=== PATIENT | male | born 1945 | race Caucasian/White ===

== ENCOUNTER 2024-02-05 21:01 | Inpatient (IN) | payer OTHER, MEDICARE ==
[~2024-02-05] VITALS: Ht 175.3 cm; Wt 114.8 kg
[2024-02-05 21:35] VITALS: O2SAT 97
[2024-02-05] MEDS: CALCIUM GLUCONATE 1GM PREMIX 50 ML IV ONE (22:45)
[2024-02-05 23:29] LABS: HEMATOCRIT. 32.6 % (42.0-52.0); HEMOGLOBIN. 10.7 g/dL (14.0-18.0); MEAN CORPUSCULAR HEMOGLOBIN 35.7 pg (28.0-32.0); MEAN CORPUSCULAR HGB CONC 32.9 g/dL (31.0-37.0); MEAN CORPUSCULAR VOLUME 108.4 fL (80.0-94.0); RED BLOOD CELL COUNT 3.01 mill/uL (4.7-6.1); RED CELL DISTRIBUTION WIDTH 16.8 % (11.6-14.6); WHITE BLOOD COUNT 5.3 x1000/uL (4.5-11.0)
[2024-02-05 23:34] LABS: INR 1.3; PROTHROMBIN TIME 14.3 sec (9.6-11.0)
[2024-02-05 23:38] LABS: CHLORIDE 107 mEq/L (98-107); SODIUM 140 mEq/L (136-145)
[2024-02-05 23:39] LABS: CALCIUM 8.9 mg/dL (8.7-10.4); CARBON DIOXIDE 25 mEq/L (21-32)
[2024-02-05 23:44] LABS: CREATININE 2.1 mg/dL (0.6-1.3); GLUCOSE 106 mg/dL (70-105); UREA NITROGEN BLOOD 20 mg/dL (9-23)
[2024-02-05 23:45] LABS: ETHANOL BLOOD 227 mg/dL (<10)
[2024-02-05 23:46] LABS: ALANINE AMINOTRANSFERASE 25 IU/L (10-49); ALBUMIN 4.7 g/dL (3.2-4.8); ASPARTATE AMINOTRANSFERASE 37 IU/L (<34); BILIRUBIN TOTAL 1.4 mg/dL (0.1-1.0); DIFFERENTIAL COMMENT 1
[2024-02-05 23:47] LABS: MEAN PLATELET VOLUME 9.5 fl (7.4-10.4); PROTEIN TOTAL 6.8 g/dL (6.0-8.3)
[2024-02-05 23:50] LABS: PLATELET 869 x1000/uL (130-400)
[2024-02-06 00:07] LABS: ATYPICAL LYMPHOCYTES 1
[2024-02-06 00:08] LABS: GIANT PLATELETS 2+; OVALOCYTES 3+; PLATELET ESTIMATE MARKEDLY INCREASED; TARGET CELLS 1+
[2024-02-06 00:31] LABS: TROPONIN I HIGH SENSITIVITY 174 ng/L (3.0-53)
[2024-02-06] MEDS: ASPIRIN 325MG EC TABLET PO NR (02:34)
[2024-02-06] MEDS: ENOXAPARIN 100MG/ML SYR SUBCUT NR (02:34)
[2024-02-06] MEDS ORDERED: ACETAMINOPHEN 325MG TABLET PO PRN (04:30)
[2024-02-06] MEDS ORDERED: LORAZEPAM 4MG/ML INJ IV PRN (04:30)
[2024-02-06] MEDS ORDERED: MAGNESIUM/ALUMINUM HYDROXIDE/SIMETHICONE 30ML UDC PO PRN (04:30)
[2024-02-06] MEDS ORDERED: GUAIFENESIN 200MG/10ML SUGAR FREE UDC PO PRN (04:30)
[2024-02-06] MEDS ORDERED: DOCUSATE SODIUM 100MG CAPSULE PO PRN (04:30)
[2024-02-06] MEDS: THIAMINE HCL 100MG TABLET PO SCH (04:30)
[2024-02-06] MEDS ORDERED: DEXTROSE 50% WATER 50ML SYRINGE IV PRN (04:30)
[2024-02-06] MEDS ORDERED: IPRATROPIUM/ALBUTEROL 0.5-3(2.5)MG/3ML NEB HHN PRN (04:30)
[2024-02-06] MEDS: MVI, ADULT NO.1 10 ML, FOLIC ACID 1 MG, THIAMINE HCL 100 MG in SODIUM CHLORIDE 0.9% 1,0... IV SCH (05:20)
[2024-02-06] MEDS: PANTOPRAZOLE SODIUM 40 MG/VIAL IV SCH (05:20)
[2024-02-06 07:08] LABS: BASOPHILS % 0.8 % (0.0-2.0); DIFFERENTIAL COMMENT 0; EOSINOPHILS % 0.3 % (0.0-5.0); HEMATOCRIT. 32.8 % (42.0-52.0); HEMOGLOBIN. 10.8 g/dL (14.0-18.0); LYMPHOCYTES % 17.8 % (20.0-50.0); MEAN CORPUSCULAR HEMOGLOBIN 35.4 pg (28.0-32.0); MEAN CORPUSCULAR HGB CONC 32.8 g/dL (31.0-37.0); MEAN CORPUSCULAR VOLUME 107.8 fL (80.0-94.0); MEAN PLATELET VOLUME 8.7 fl (7.4-10.4); MONOCYTES % 8.5 % (2.0-8.0); NEUTROPHILS % 72.6 % (40.0-76.0); PLATELET 830 x1000/uL (130-400); RED BLOOD CELL COUNT 3.04 mill/uL (4.7-6.1); RED CELL DISTRIBUTION WIDTH 16.7 % (11.6-14.6); WHITE BLOOD COUNT 4.8 x1000/uL (4.5-11.0)
[2024-02-06 07:18] LABS: CHLORIDE 111 mEq/L (98-107); POTASSIUM 3.6 mEq/L (3.5-5.1); SODIUM 141 mEq/L (136-145)
[2024-02-06 07:19] LABS: CALCIUM 8.9 mg/dL (8.7-10.4); CARBON DIOXIDE 25 mEq/L (21-32)
[2024-02-06 07:23] LABS: IRON 46 ug/dL (65-175)
[2024-02-06 07:24] LABS: CREATINE KINASE MB FRACTION 4.5 ng/mL (0.5-3.6); CREATININE 1.9 mg/dL (0.6-1.3); GLUCOSE 86 mg/dL (70-105); TRIGLYCERIDE 60 mg/dL (0-150); UREA NITROGEN BLOOD 19 mg/dL (9-23)
[2024-02-06 07:25] LABS: LDL CHOLESTEROL 50 mg/dL (5-100)
[2024-02-06 07:26] LABS: CHOLESTEROL 126 mg/dL (<200); CREATINE KINASE 121 IU/L (46-171); HDL CHOLESTEROL 57 mg/dL (>55); TOTAL IRON BINDING CAPACITY 301 ug/dl (250-425)
[2024-02-06 07:27] LABS: VITAMIN B12 SERUM 1005 pg/mL (211-911)
[2024-02-06 07:28] LABS: FOLIC ACID (FOLATE) SERUM > 20.00 ng/mL (>5.38)
[2024-02-06 07:29] LABS: THYROID STIMULATING HORMONE 1.84 uIU/mL (0.55-4.78)
[2024-02-06 08:00] LABS: TROPONIN I HIGH SENSITIVITY 174 ng/L (3.0-53)
[2024-02-06] MEDS: INSULIN LISPRO 100 UNITS/ML SUBCUT SCH (08:20)
[2024-02-06 08:47] LABS: CLARITY URINE CLEAR (CLEAR); COLOR URINE YELLOW (YELLOW); GLUCOSE URINE NEGATIVE (NEGATIVE); KETONES URINE NEGATIVE (NEGATIVE); LEUKOCYTE ESTERASE URINE NEGATIVE (NEGATIVE); NITRITE URINE NEGATIVE (NEGATIVE); OCCULT BLOOD URINE NEGATIVE (NEGATIVE); PH URINE 5.5 (4.5-8.0); PROTEIN URINE 2+ (NEGATIVE); SPECIFIC GRAVITY URINE 1.013 (1.005-1.030)
[2024-02-06 09:36] LABS: HYALINE CASTS URINE 0-5 /lpf
[2024-02-06 09:38] LABS: RBC URINE NONE SEEN /hpf (0-2); WBC URINE 0-2 /hpf (0-2)
[2024-02-06 09:39] LABS: BACTERIA URINE TRACE; COARSE GRANULAR CASTS URINE 0-5 /lpf; SQUAMOUS EPITHELIAL CELL URINE FEW /lpf (RARE/1+)
[2024-02-06] MEDS: BLOOD SUGAR DIAGNOSTIC STRIP TEST SCH (09:42)
[2024-02-06] MEDS: FOLIC ACID 1MG TABLET PO SCH (09:50)
[2024-02-06 12:21] LABS: *AMPHETAMINES SCREEN URINE NEGATIVE (NEGATIVE); *BARBITURATES SCREEN URINE NEGATIVE (NEGATIVE); *BENZODIAZEPINES SCREEN URINE NEGATIVE (NEGATIVE); *COCAINE SCREEN URINE NEGATIVE (NEGATIVE)
[2024-02-06 12:22] LABS: CANNABINOID URINE SCREEN NEGATIVE (NEGATIVE); ECSTASY MDMA SCREEN URINE NEGATIVE (NEGATIVE); METHADONE URINE SCREEN NEGATIVE (NEGATIVE); OPIATES URINE SCREEN NEGATIVE (NEGATIVE); PHENCYCLIDINE URINE SCREEN NEGATIVE (NEGATIVE)
[2024-02-06 16:19] LABS: CREATINE KINASE MB FRACTION 4.7 ng/mL (0.5-3.6)
[2024-02-06 21:51] LABS: CREATINE KINASE MB FRACTION 4.6 ng/mL (0.5-3.6)
[2024-02-06] MEDS ORDERED: LIP40 PO (21:59)
[2024-02-06 22:00] VITALS: BP 143/91; PULSE 135; RESP 20; TEMP 97.9
[2024-02-06] MEDS ORDERED: TROS20TA3 MT (22:38)
[2024-02-06] MEDS ORDERED: GABA-532 PO (22:38)
[2024-02-06] MEDS ORDERED: HYDR-2988 MT ×2 (22:38)
[2024-02-06] MEDS ORDERED: OMEP20CA14 MT (22:38)
[2024-02-06] MEDS ORDERED: DABI150C PO (22:38)
[2024-02-06] MEDS ORDERED: IMAT400T7 MT (22:38)
[2024-02-06] MEDS ORDERED: LISI40TA13 PO (22:38)
[2024-02-06] MEDS ORDERED: FURO-152 PO (22:38)
[2024-02-06] MEDS: CLONIDINE 0.1MG TABLET PO PRN (22:44)
[2024-02-06] MEDS: LORAZEPAM 2MG/ML INJ IV PRN (23:44)
[2024-02-07] VITALS: BP 148/78; PULSE 111; RESP 16; TEMP 98.8
[2024-02-07 04:00] VITALS: BP 152/80; PULSE 70; RESP 18; TEMP 98.6
[2024-02-07 08:00] VITALS: BP 131/102; PULSE 92; RESP 20; TEMP 98.5
[2024-02-07] MEDS: ENOXAPARIN 30MG/0.3ML SYR SUBCUT SCH (08:33)
[2024-02-07] MEDS: ACETAMINOPHEN 325MG TABLET PO PRN (10:28)
[2024-02-07] MEDS ORDERED: CLONIDINE 0.1MG TABLET PO PRN (11:30)
[2024-02-07 12:00] VITALS: BP 128/101; PULSE 96; RESP 18; TEMP 97.6
[2024-02-07] MEDS: AMLODIPINE 10MG TABLET PO SCH (12:33)
[2024-02-07] MEDS: ASPIRIN 81MG TABLET PO SCH (12:33)
[2024-02-07] MEDS: CEPHALEXIN 250MG CAPSULE PO SCH (12:33)
[2024-02-07 16:00] VITALS: BP 140/95; PULSE 113; RESP 18; TEMP 98.1
[2024-02-07 17:47] LABS: AMMONIA 27 uMol/L (<32)
[2024-02-07 18:01] LABS: TROPONIN I HIGH SENSITIVITY 222 ng/L (3.0-53)
[2024-02-07 20:00] VITALS: BP 140/98; PULSE 105; RESP 19; TEMP 96.4
== END 2024-02-07 22:22 | disposition short-term general hospital (02) | DRG 91 ==
LOC: ER 21:01 → 5WST 02-06 03:37 → 8WST 02-06 21:31
PROVIDERS: ADMIT Hospitalist; ATTEND Hospitalist
DX: G92.9 Unspecified toxic encephalopathy (principal); I21.4 Non-ST elevation (NSTEMI) myocardial infarction; N17.9 Acute kidney failure, unspecified; L03.115 Cellulitis of right lower limb; L03.116 Cellulitis of left lower limb; R17 Unspecified jaundice; E78.5 Hyperlipidemia, unspecified; E11.9 Type 2 diabetes mellitus without complications; E78.00 Pure hypercholesterolemia, unspecified; D50.9 Iron deficiency anemia, unspecified; F10.129 Alcohol abuse with intoxication, unspecified; I12.9 Hypertensive chronic kidney disease with stage 1 through stage 4 chronic kidney disease, or unspecified chronic kidney disease; N18.32 Chronic kidney disease, stage 3b; Y90.9 Presence of alcohol in blood, level not specified
CPT/HCPCS: 36415; 71045; 76700; 80048; 80053; 80061; 80305; 80320; 81003; 82140; 82550; 82553; 82607; 82746; 82962; 83036; 83540; 83550; 84443; 84484; 85025; 85044; 93005; 93970; 99291; C9113; J0610; J1650; J2060; J3411; J3490; J7030; G0480